=== PATIENT | female | born 1995 ===

== ENCOUNTER 2017-05-02 03:18 | Emergency (ER) | payer SELFPAY ==
[2017-05-02 03:44] VITALS: RESP 18; TEMP 98.5; O2SAT 100
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
--- NOTE | 2017-05-02 04:43 | CT ---
EXAM: CT Head Without Intravenous Contrast CLINICAL HISTORY: 21 years old, female; Pain; Headache; Headache not specified; Additional info: Injury TECHNIQUE: Axial computed tomography images of the head/brain without intravenous contrast. All CT scans at this facility use one or more dose reduction techniques, viz.: automated exposure control; ma/kV adjustment per patient size (including targeted exams where dose is matched to indication; i.e. head); or iterative reconstruction technique. COMPARISON: No relevant prior studies available. FINDINGS: Brain: No intracranial hemorrhage. No mass. No definite edema. Ventricles: No hydrocephalus. Bones/joints: No acute fracture. Soft tissues: Unremarkable. Sinuses: No acute sinusitis. Mastoid air cells: No mastoid effusion. Orbits: Unremarkable as visualized. IMPRESSION: 1. No intracranial hemorrhage.
[2017-05-02 06:28] VITALS: BP 121/80; PULSE 85
[2017-05-02] MEDS ORDERED: Morphine 2 mg/ml ISec ONE (18:06)
== END 2017-05-02 05:45 | disposition home or self-care (01) ==
LOC: ED 03:18
DX: R51 Headache (principal)